=== PATIENT | female | born 1965 | race Caucasian/White ===

== ENCOUNTER 2022-04-12 10:28 | Emergency (ER) | payer SELFPAY ==
[~2022-04-12] VITALS: Ht 172.7 cm; Wt 85.0 kg
[2022-04-12] MEDS ORDERED: ONDANSETRON 4MG ODT PO ONE (12:30)
[2022-04-12 12:47] LABS: BASOPHILS % 0.7 % (0.0-2.0); HEMATOCRIT. 40.8 % (36.0-48.0); LYMPHOCYTES % 18.4 % (20.0-50.0); MEAN CORPUSCULAR HEMOGLOBIN 30.9 pg (28.0-32.0); MEAN CORPUSCULAR VOLUME 89.7 fL (81.0-99.0); MEAN PLATELET VOLUME 8.5 fl (7.4-10.4); MONOCYTES % 7.4 % (2.0-8.0); NEUTROPHILS % 73.5 % (40.0-76.0); PLATELET 156 x1000/uL (130-400); RED BLOOD CELL COUNT 4.54 mill/uL (4.2-5.4); RED CELL DISTRIBUTION WIDTH 13.1 % (11.6-14.6)
[2022-04-12 12:52] LABS: CHLORIDE 104 mEq/L (98-107)
[2022-04-12] MEDS ORDERED: MORPHINE SULFATE 4 MG/ML CPJ (NOT FOR IM USE) IV ONE (13:30)
[2022-04-12] MEDS ORDERED: ASPIRIN 325MG EC TABLET PO ONE (13:30)
[2022-04-12] MEDS ORDERED: MORPHINE SULFATE 4 MG/ML CPJ (NOT FOR IM USE) IV NR (15:45)
[2022-04-12] MEDS ORDERED: ASPIRIN 325MG EC TABLET PO NR (15:45)
[2022-04-12] MEDS ORDERED: TRAM-529 MT (16:03)
[2022-04-12] MEDS ORDERED: OMEP20CA14 MT (16:03)
[2022-04-12 19:29] VITALS: BP 130/62
== END 2022-04-12 19:30 | disposition home or self-care (01) ==
LOC: ER 10:59
DX: M79.18 Myalgia, other site (principal); R07.89 Other chest pain; R77.8 Other specified abnormalities of plasma proteins; E11.9 Type 2 diabetes mellitus without complications; I10 Essential (primary) hypertension; Z20.822 Contact with and (suspected) exposure to COVID-19
CPT/HCPCS: 36415; 71045; 80053; 83690; 84484; 85025; 87426; 87804; 93005; 96374; 99285; C9803; J2270; Q0162